=== PATIENT | male | born 2000 | race African-American/Black ===

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

== ENCOUNTER 2018-10-11 14:40 | Emergency (ER) | payer OTHER ==
[~2018-10-11] VITALS: Ht 188 cm; Wt 70.0 kg
[~2018-10-11 14:40] MED LIST: IBUP-1022 PO; IBUP200C25 PO; MAGICMW MT
[2018-10-11 16:09] LABS: BASO % 0.6 % (0.0-1.0); EOS # 0.2 10^3/uL (0.0-0.50); EOS % 4.2 % (0.0-3.0); HEMOGLOBIN 14.8 g/dl (13.5-17.5); LYMPH # 1.8 10^3/uL (1.5-6.5); LYMPH % 37.9 % (24.0-44.0); MEAN CORPUSCULAR HEMOGLOBIN 31.4 pg (27.0-33.0); MEAN CORPUSCULAR HGB CONC 34.4 g/dl (32.0-36.5); MEAN CORPUSCULAR VOLUME 91.1 fl (80.0-96.0); MONO # 0.6 10^3/uL (0.0-0.8); MONO % 11.9 % (0.0-5.0); NEUTROPHILS # 2.2 10^3/uL (1.8-7.7); NEUTROPHILS % 45.2 % (36.0-66.0); PLATELET COUNT, AUTOMATED 249 10^3/uL (150-450); RED BLOOD COUNT 4.72 10^6/uL (4.30-6.10); WHITE BLOOD COUNT 4.8 10^3/uL (4.0-10.0)
[2018-10-11] MEDS ORDERED: ONDANSETRON 4 MG ORAL DISINTEGRATING TAB (Q0162 PER 1MG) PO ONE (16:30)
[2018-10-11 16:33] LABS: ALBUMIN 4.1 GM/DL (3.2-5.2); ALT/SGPT 24 U/L (12-78); BILIRUBIN,DIRECT 0.2 MG/DL (0.0-0.2); BILIRUBIN,TOTAL 0.5 MG/DL (0.2-1.0); BLOOD UREA NITROGEN 22 MG/DL (7-18); CALCIUM LEVEL 9.2 MG/DL (8.5-10.1); CARBON DIOXIDE LEVEL 30 MEQ/L (21-32); CHLORIDE LEVEL 105 MEQ/L (98-107); CREATININE FOR GFR 1.15 MG/DL (0.70-1.30); GLUCOSE, FASTING 82 MG/DL (70-100); LIPASE 85 U/L (73-393); SODIUM LEVEL 139 MEQ/L (136-145); TOTAL PROTEIN 7.4 GM/DL (6.4-8.2)
[2018-10-11] MEDS ORDERED: PANTOPRAZOLE 40MG INJ (PROTONIX) (C9113) IV ONE (17:45)
[2018-10-11] MEDS ORDERED: SUCRALFATE SUSP 1GM/10ML UD PO ONE (17:45)
[2018-10-11] MEDS ORDERED: NS 1,000 ML IV ONE (17:45)
[2018-10-11] MEDS ORDERED: METOCLOPRAMIDE INJ 10MG/2ML VIAL (J2765) IV ONE (17:45)
[2018-10-11] MEDS ORDERED: ONDA4TAB6 PO (20:25)
[2018-10-11 20:30] VITALS: BP 122/58
== END 2018-10-11 20:31 | disposition home or self-care (01) ==
LOC: M ED 14:40
DX: K52.9 Noninfective gastroenteritis and colitis, unspecified (principal); E86.0 Dehydration; R10.817 Generalized abdominal tenderness
CPT/HCPCS: 80048; 80076; 81001; 83690; 85025; 87086; 96374; 96375; 99284; C9113; J2765; Q0162

== ENCOUNTER 2018-11-24 12:04 | Emergency (ER) | payer OTHER ==
[~2018-11-24] VITALS: Ht 182.9 cm; Wt 72.5 kg
[2018-11-24 12:04] VITALS: BP 126/68
[~2018-11-24 12:04] MED LIST changes: +ONDA4TAB6 PO
[2018-11-24] MEDS ORDERED: MUSCLE RELAXERS (12:09)
[2018-11-24] MEDS ORDERED: IBUP80TA PO (14:42)
[2018-11-24] MEDS ORDERED: IBUPROFEN 800 MG TAB PO ONE (14:45)
--- NOTE | 2018-11-24 15:47 | REP ---
Left shoulder four views : There is no fracture or dislocation. Mineralization and joint spaces are normal. There are no calcifications or foreign bodies. Impression: Negative left shoulder . Electronically Signed by Candelario Zuniga MD 11/24/2018 03:38 P
== END 2018-11-24 14:53 | disposition home or self-care (01) ==
LOC: M ED 12:04
DX: S43.005A Unspecified dislocation of left shoulder joint, initial encounter (principal); M25.512 Pain in left shoulder; X50.0XXA Overexertion from strenuous movement or load, initial encounter; Y92.139 Unspecified place military base as the place of occurrence of the external cause; Y93.B3 Activity, free weights; Y99.1 Military activity; G47.00 Insomnia, unspecified

== ENCOUNTER 2019-07-26 06:02 | Emergency (ER) | payer OTHER ==
[~2019-07-26] VITALS: Ht 182.9 cm; Wt 80.3 kg
[~2019-07-26 06:02] MED LIST changes: +IBUP80TA PO; +MUSCLE RELAXERS
[2019-07-26] MEDS ORDERED: ACETAMINOPHEN TAB 650MG DOSE (2X325MG) PO ONE (07:00)
--- NOTE | 2019-07-26 07:19 | REP ---
Clinical: Right knee pain Technique: AP, lateral, bilateral oblique and sunrise views right knee . Findings: The osseous structures and joint spaces are intact and normal. There is no evidence for acute fracture or dislocation. No joint effusion is appreciated. Surrounding soft tissues are unremarkable. No subcutaneous emphysema or radiodense foreign body. Impression: Normal examination. No acute fracture or dislocation. Electronically Signed by Get Cruz MD 07/26/2019 07:10 A
[2019-07-26 07:40] VITALS: BP 128/61
== END 2019-07-26 07:41 | disposition home or self-care (01) ==
LOC: M ED 06:02
DX: S83.91XA Sprain of unspecified site of right knee, initial encounter (principal); X50.0XXA Overexertion from strenuous movement or load, initial encounter; Y99.1 Military activity

== ENCOUNTER 2019-09-19 11:21 | Emergency (ER) | payer OTHER ==
[~2019-09-19] VITALS: Ht 188 cm; Wt 77.6 kg
[2019-09-19] MEDS ORDERED: NEOSPORIN TOP OINT 15GM TOP ONE (12:30)
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
[2019-09-19] MEDS ORDERED: KEFL500C17 PO ×2 (13:27→15:51)
[2019-09-19 13:34] VITALS: BP 120/71
== END 2019-09-19 13:37 | disposition home or self-care (01) ==
LOC: M ED 11:21
DX: S60.529A Blister (nonthermal) of unspecified hand, initial encounter (principal); S50.811A Abrasion of right forearm, initial encounter; S50.812A Abrasion of left forearm, initial encounter; S80.211A Abrasion, right knee, initial encounter; S80.212A Abrasion, left knee, initial encounter; V86.55XA Driver of 3- or 4- wheeled all-terrain vehicle (ATV) injured in nontraffic accident, initial encounter; Y99.8 Other external cause status; Y92.89 Other specified places as the place of occurrence of the external cause

== ENCOUNTER → 2020-04-27 | Outpatient (CLI) | payer OTHER ==
[~2020-04-27] MED LIST changes: +KEFL500C17 PO
== END ==
LOC: M LABSMTC 10:42
PROVIDERS: ATTEND Pediatrics
DX: Z20.822 Contact with and (suspected) exposure to COVID-19 (principal)
CPT/HCPCS: C9803; U0003